=== PATIENT | male | born 1970 | race Caucasian/White ===

== ENCOUNTER → 2017-03-19 07:44 | Day surgery (SDC) | payer BC ==
[~2017-03-19 07:44] MED LIST: Buffered Lidocaine 0.9% SYRIN* 5 ML/SYR SYRINGE INTRADERM ONE; Buffered Lidocaine 0.9% SYRIN* 5 ML/SYR SYRINGE ONE; Bupivacaine 0.25% SDV* 30 ML ONE; Bupivacaine 0.5% SDV PF* 30 ML VIAL ONE; DiMENhydriNATE IV* 50 MG/ML VIAL IV PUSH PRN; HYDROcodone/ACETAMIN 5-325 MG* 1 TAB ONE; HYDROcodone/ACETAMIN 5-325 MG* 1 TAB PO PRN; HYDROmorphone INJ* 1 MG/ML CARPUJECT SYRINGE IV PRN; KETAMINE HCL* 50 MG/ML 10 ML VIAL ONE; Ketorolac INJ* 30 MG/ML 1 ML VIAL ONE; Lidocaine 1% MPF wEPI 200,000* 30 ML SDV ONE; Midazolam* 1 MG/ML 5 ML VIAL (5 MG) ONE; Ondansetron INJ* 2 MG/ML VIAL IV PRN; Propofol* 10 MG/ML 20 ML BTL IV PUSH ONE; ceFAZolin 2 GM PREMIX (*) 50 ML IVPB ONE; fentaNYL* 50 MCG/ML 2 ML VIAL (100 MCG VIAL) ONE; oxyCODONE/Acetamin 5/325 MG* TAB PO PRN
--- NOTE | 2017-03-19 11:29 | PN ---
Progress Note - Progress Note Date of Service: 03/19/17 Note: Brief Operative Note: Preop Dx: Umbilical Hernia Postop Dx: same Procedure: open repair umbilical hernia w/ mesh Anesthesia: local/MAC Surgeon: Omar Asst: AURY Harris EBL: < 50 ml Fluids: 1 liter LR Drains: none Specimen: none Findings: dictated
[2017-03-19] MEDS: fentaNYL* 50 MCG/ML 2 ML VIAL (100 MCG VIAL) IV PRN ×2 (11:49→11:58)
[2017-03-19 12:54] VITALS: BP 117/79
--- NOTE | 2017-03-20 09:03 | OP ---
CC: Jada Lawrence NP * DATE OF OPERATION: 03/19/17 - [facility] DATE OF : 70 SURGEON: Dr. Nelson. SHOE ASSOCIATE: AURY Michael. ANESTHESIOLOGIST: Dr. Faust. ANESTHESIA: Local MAC. PRE-OP DIAGNOSIS: Umbilical hernia. POST-OP DIAGNOSIS: Umbilical hernia. OPERATIVE PROCEDURE: Open repair of umbilical hernia with mesh. ESTIMATED BLOOD LOSS: Minimal. IV FLUIDS: Crystalloids. SPECIMENS: None. DRAINS: None. COMPLICATIONS: None. COUNTS: The instrument, needle, and sponge counts were correct. DESCRIPTION OF PROCEDURE: The patient was brought to the operating room and placed on the table supine. The patient's abdomen was prepped and draped in the usual sterile fashion. He received appropriate intravenous antibiotics and a time-out was performed. The local anesthetic was infiltrated as a field block surrounding the umbilicus. A curvilinear infraumbilical incision was created. Subcutaneous tissues were divided. The umbilical stalk was identified. The umbilical hernia sac was identified and this was exiting to the left of the umbilical stalk. The base of the stalk was from the anterior abdominal wall. The hernia defect measured 2.5 cm and the sac was opened and excised and the more vascular appearing portions of the sac were ligated with 2-0 absorbable ties. A medium sized Bard circular umbilical hernia mesh was selected for the repair. This was placed into the peritoneal cavity and drawn up through the defect using the central straps. Then the mesh was secured to the superior and inferior fascial leaflets with interrupted 0 Ti-Cron suture. The straps were cut and then the hernia defect was reapproximated transversely using interrupted 0 Ti-Cron. The umbilical stalk was reapproximated with 3-0 Polysorb, skin was closed in 2 layers with 3-0 Polysorb subcu and 4-0 Monocryl for the skin edges. Steri-Strips were applied. The patient tolerated the procedure well and was transferred to recovery room in stable condition. [id number]/[facility] #: [id number] MTDD
== END | disposition home or self-care (01) ==
LOC: OR 07:44
PROVIDERS: ATTEND Surgery
PROC: 0WUF0JZ Supplement Abdominal Wall with Synthetic Substitute, Open Approach (ICD-10-PCS; principal; 2017-03-19 09:15)
DX: K42.9 Umbilical hernia without obstruction or gangrene (principal); R10.813 Right lower quadrant abdominal tenderness; E66.9 Obesity, unspecified; Z68.35 Body mass index [BMI] 35.0-35.9, adult; F90.9 Attention-deficit hyperactivity disorder, unspecified type
CPT/HCPCS: C1781; J0690; J1885; J2001; J2250; J2704; J3010

== ENCOUNTER 2019-06-12 15:39 | Emergency (ER) | payer BC ==
[2019-06-12 18:53] LABS: ABS Lymphocytes 0.4 10^3/ul (1.0-4.8); ABS Monocytes 0.5 10^3/ul (0-0.8); ABS Neutrophils 11.1 10^3/ul (1.5-7.7); Eosinophil % 0.1 %; Hematocrit 48 % (42-52); Hemoglobin 16.8 g/dL (14.0-18.0); Lymphocyte % 3.4 %; Mean Corpuscular HGB Conc 35 g/dL (31-36); Mean Corpuscular Hemoglobin 31 pg (27-31); Mean Corpuscular Volume 88 fL (80-94); Mean Platelet Volume 7.5 fL (7.4-10.4); Nucleated Red Blood Cells % 0.1; Platelet Count 235 10^3/uL (150-450); Red Cell Distribution Width 13 % (10-15); White Blood Count 12.1 10^3/uL (3.5-10.8)
[2019-06-12 19:10] LABS: Albumin 4.2 g/dL (3.2-5.2); Albumin/Globulin Ratio 1.4 (1-3); BUN/Creatinine Ratio 18.1 (8-20); C Reactive Protein 19.52 mg/L (<8.01); Calcium 8.9 mg/dL (8.6-10.3); EGFR African American 103.6 (>60); EGFR Non-African American 85.7 (>60); Globulin 2.9 g/dL (2-4); Potassium 4.4 mmol/L (3.5-5.0); Total Bilirubin 0.6 mg/dL (0.2-1.0); Total Protein 7.1 g/dL (6.4-8.9)
--- NOTE | 2019-06-12 19:43 | ED ---
Abdominal Pain/Male - HPI Summary HPI Summary: This pt is a 48 Y/O M presenting to [facility] accompanied by his with a CC of abdominal pain that has been present for a couple months but worsened today at 0900. He states that he woke up at 0600 and felt normal until he ate breakfast. He states that his stomach was bloated and became nauseas and vomited after he ate breakfast. He states that he is unusually full after eating small meals and the pain is rated a 9/10 in severity and is diffuse. He states that the pain moves around the abdomen and is rarely in the same place but is mostly located in the upper abdomen. The pain is worse on palpation, after eating, and when he stands up but is alleviated while he lies down. He denies any fevers, headaches, and SOB. He states that he has a PMHx of GERD and has had a surgery for an inguinal hernia. - History of Current Complaint Chief Complaint: EDAbdPain Stated Complaint: ABD PAIN/BLOATING PER PT Time Seen by Provider: 06/12/19 19:29 Hx Obtained From: Patient Onset/Duration: Sudden Onset Timing: Constant Severity Initially: Moderate Severity Currently: Severe Pain Intensity: 9 Pain Scale Used: 0-10 Numeric Location: Diffuse - States that the pain can be anywhere, Epigastric - mostly located in the epigastric region Radiates: No Aggravating Factor(s): Food, Movement Alleviating Factor(s): Position - states that lying down alleviates Associated Signs And Symptoms: Positive: Negative - headaches, SOB, Decreased Appetite, Nausea, Vomiting, Other - bloating. Negative: Fever - Allergies/Home Medications Allergies/Adverse Reactions: Allergies Allergy/AdvReac Type Severity Reaction Status Date / Time MS Shellfish Allergy Allergy Intermediate See Comment Verified 06/12/19 15:42 Home Medications: Home Medications Dextroamphetamine/Amphetamine [Dextroamp-Amphetamin 10 mg Tab] 10 mg PO QAM [History Confirmed 06/12/19] PMH/Surg Hx/FS Hx/Imm Hx Previously Healthy: Yes Respiratory History: Reports: Hx Asthma GI History: Reports: Hx Gastroesophageal Reflux Disease Musculoskeletal History: Reports: Other Musculoskeletal History - cervical spinal fusoin Sensory History: Denies: Hx Cataracts, Hx Contacts or Glasses, Hx Hearing Aid Opthamlomology History: Denies: Hx Cataracts, Hx Contacts or Glasses Psychiatric History: Reports: Hx Anxiety - little bit, om ADD medicine - Cancer History Hx Chemotherapy: No Hx Radiation Therapy: No - Surgical History Surgical History: Yes Surgery Procedure, Year, and Place: C5-6,C6-7 Anterior Cervical Diskectomy with banked bone Fusion 08/2008. Left Endoscopic Carpal tunnel release 12/2008. Right Endoscopic Carpal Tunnel Release 01/2009 Hx Anesthesia Reactions: No Infectious Disease History: No Infectious Disease History: Denies: Traveled Outside the [place] in Last 30 Days - Family History Known Family History: Negative: Hypertension, Renal Disease - Social History Occupation: Employed Full-time Lives: With Family Alcohol Use: Occasionally Hx Substance Use: No Substance Use Type: Reports: None Hx Tobacco Use: Yes Smoking Status (MU): Former Smoker Amount Used/How Often: smoked off and on for 10 years 2pp Review of Systems Negative: Fever Negative: Shortness Of Breath Positive: Abdominal Pain, Vomiting, Nausea, Other - abdominal bloating Negative: Headache All Other Systems Reviewed And Are Negative: Yes Physical Exam - Summary Physical Exam Summary: Appearance: Well-appearing, Well-nourished, lying in bed comfortably, known to be tachycardic Skin: Warm, dry, no obvious rash Eyes: sclera anicteric, no conjunctival pallor ENT: mucous membranes moist, pharynx appears normal Neck: Supple, nontender Respiratory: Clear to auscultation, no signs of respiratory distress Cardiovascular: Normal S1, S2. No murmurs. Normal distal pulses in tibial and radial bilaterally. Abdomen: Soft, nontender, normal active bowel sounds present, upper abdominal tenderness that is inconsistent without peritoneal signs Musculoskeletal: Normal, Strength/ROM Intact Neurological: A&Ox3, awake and alert, mentation is normal, speech is fluent and appropriate Psychiatric: affect is normal, does not appear anxious or depressed Triage Information Reviewed: Yes Vital Signs On Initial Exam: Initial Vitals Temp Pulse Resp BP Pulse Ox 98.1 F 111 15 129/85 97 06/12/19 15:41 06/12/19 15:41 06/12/19 15:41 06/12/19 15:41 06/12/19 15:41 Vital Signs Reviewed: Yes Procedures - Sedation Patient Received Moderate/Deep Sedation with Procedure: No Diagnostics - Vital Signs Vital Signs Temp Pulse Resp BP Pulse Ox 06/12/19 17:47 99.1 F 126 18 96/80 97 06/12/19 15:41 98.1 F 111 15 129/85 97 - Laboratory Lab Results: Lab Results 06/12/19 06/12/19 06/12/19 Range/Units 18:41 18:41 18:41 WBC 12.1 H (3.5-10.8) 10^3/uL RBC 5.50 H (4.18-5.48) 10^6 /uL Hgb 16.8 (14.0-18.0) g/dL Hct 48 (42-52) % MCV 88 (80-94) fL MCH 31 (27-31) pg MCHC 35 (31-36) g/dL RDW 13 (10-15) % Plt Count 235 (150-450) 10^3/uL MPV 7.5 (7.4-10.4) fL Neut % (Auto) 92.2 % Lymph % (Auto) 3.4 % Leon % (Auto) 4.2 % Eos % (Auto) 0.1 % Baso % (Auto) 0.1 % Absolute Neuts (auto) 11.1 H (1.5-7.7) 10^3/ul Absolute Lymphs (auto) 0.4 L (1.0-4.8) 10^3/ul Absolute Monos (auto) 0.5 (0-0.8) 10^3/ul Absolute Eos (auto) 0.0 (0-0.6) 10^3/ul Absolute Basos (auto) 0.0 (0-0.2) 10^3/ul Absolute Nucleated RBC 0.0 10^3/ul Nucleated RBC % 0.1 Sodium 137 (135-145) mmol/L Potassium 4.4 (3.5-5.0) mmol/L Chloride 105 (101-111) mmol/L Carbon Dioxide 28 (22-32) mmol/L Anion Gap 4 (2-11) mmol/L BUN 17 (6-24) mg/dL Creatinine 0.94 (0.67-1.17) mg/dL Est GFR ( Amer) 103.6 (>60) Est GFR (Non-Af Amer) 85.7 (>60) BUN/Creatinine Ratio 18.1 (8-20) Glucose 117 H (70-100) mg/dL Lactic Acid 1.6 (0.5-2.0) mmol/L Calcium 8.9 (8.6-10.3) mg/dL Total Bilirubin 0.60 (0.2-1.0) mg/dL AST 16 (13-39) U/L ALT 27 (7-52) U/L Alkaline Phosphatase 51 (34-104) U/L C-Reactive Protein 19.52 H (<8.01) mg/L Total Protein 7.1 (6.4-8.9) g/dL Albumin 4.2 (3.2-5.2) g/dL Globulin 2.9 (2-4) g/dL Albumin/Globulin Ratio 1.4 (1-3) Lipase 14 (11.0-82.0) U/L Result Diagrams: 06/12/19 18:41 06/12/19 18:41 Lab Statement: Any lab studies that have been ordered have been reviewed, and results considered in the medical decision making process. - CT CT A/P CT Interpretation Completed By: Radiologist Summary of CT Findings: No acute pathology. No acute bowel pathology. ED physician has reveiwed this report. Abdominal Pain Male Course/Dx - Course Course Of Treatment: This pt is a 48 Y/O M presenting to [facility] accompanied by his with a CC of abdominal pain that has been present for a couple months but worsened today at 0900. He states that he woke up at 0600 and felt normal until he ate breakfast. He states that his stomach was bloated and became nauseas and vomited after he ate breakfast. States nausea and vomiting, denies fevers, headaches, and SOB. His PE found that he is known to be tachycardic and he has upper abdominal tenderness that is inconsistent without peritoneal signs. He has an elevated WBC and C-reactive protein count. His CT A/P fpund that he has No acute pathology. No acute bowel pathology. Etiology of his pain is unclear, but reasonable to start empiric PPI, explained he will need to see his PCP or a motor boss in the near future as he may need an EGD. Cautioned on return precaution in the interim. He will be discharged home with a Dx of acute abdominal pain. - Diagnoses Provider Diagnoses: Acute abdominal pain Discharge ED - Sign-Out/Discharge Documenting (check all that apply): Patient Departure - discharge - Discharge Plan Condition: Good Disposition: HOME Prescriptions: Omeprazole CAP (NF) [Prilosec CAP* 20 MG] 20 mg PO DAILY #30 cap. Patient Education Materials: Peptic Ulcer (ED), Gastritis (ED), Diet for Stomach Ulcers and Gastritis (ED), Acute Abdominal Pain (ED) Referrals: Dale Ramos MD [Primary Care Provider] - Nichole James MD [Medical Doctor] - As Soon As Possible Additional Instructions: It may take a few days for the medication to work, but I don't want you getting any worse. If the pain significantly worsens or you develop other symptoms like vomiting or fever we should see you back. - Billing Disposition and Condition Condition: GOOD Disposition: Home - Attestation Statements Document Initiated by Elena: Yes Documenting Scribe: Ariel Herrera Provider For Whom Elena is Documenting (Include Credential): Bruno Salazar MD Scribe Attestation: Ariel Garcia, scribed for Bruno Salazar MD on 06/13/19 at 1838. Scribe Documentation Reviewed: Yes Provider Attestation: The documentation as recorded by the Ariel meeks accurately reflects the service I personally performed and the decisions made by me, Bruno Salazar MD Status of Scribe Document: Viewed
[2019-06-12] MEDS ORDERED: Iohexol 300* (CONTRAST) 10 ML SDV IV ONE (21:18)
[2019-06-12 21:42] LABS: Urine Appearance Clear; Urine Bilirubin Negative (Negative); Urine Blood 1+ (Negative); Urine Color Yellow; Urine Glucose Negative (Negative); Urine Ketones Negative (Negative); Urine Nitrite Negative (Negative); Urine Protein Negative (Negative); Urine Specific Gravity 1.021 (1.010-1.030); Urine Urobilinogen Negative (Negative)
[2019-06-12 21:57] LABS: Urine Bacteria Absent (Absent); Urine Red Blood Cell 2+(6-10/hpf) (Absent); Urine Squamous Epithelial Cell Present (Absent); Urine White Blood Cell Absent (Absent)
[2019-06-12] MEDS ORDERED: Pantoprazole TAB * 40 MG TAB PO ONE (22:50)
[2019-06-12 23:02] VITALS: BP 149/78
== END 2019-06-12 23:22 | disposition home or self-care (01) ==
LOC: ED 15:39
DX: R10.9 Unspecified abdominal pain (principal); K21.9 Gastro-esophageal reflux disease without esophagitis; F41.9 Anxiety disorder, unspecified; Z87.891 Personal history of nicotine dependence; Z79.899 Other long term (current) drug therapy
CPT/HCPCS: 36415; 74177; 80053; 81003; 81015; 83605; 83690; 85025; 86140; 99283; A9270-GY; Q9967

== ENCOUNTER 2020-11-04 23:07 | Inpatient (IN) ==
[2020-11-05 00:41] LABS: ABS Lymphocytes 0.9 10^3/ul (1.0-4.8); ABS Monocytes 0.5 10^3/ul (0-0.8); ABS Neutrophils 2.4 10^3/ul (1.5-7.7); Eosinophil % 0.3 %; Hematocrit 45 % (42-52); Hemoglobin 15.4 g/dL (14.0-18.0); Lymphocyte % 23.3 %; Mean Corpuscular HGB Conc 35 g/dL (31-36); Mean Corpuscular Hemoglobin 31 pg (27-31); Mean Corpuscular Volume 88 fL (80-94); Platelet Count 166 10^3/uL (150-450); Red Blood Count 5.05 10^6 /uL (4.18-5.48); Red Cell Distribution Width 14 % (10-15); White Blood Count 3.7 10^3/uL (3.5-10.8)
[2020-11-05 00:51] LABS: Albumin 3.8 g/dL (3.2-5.2); Albumin/Globulin Ratio 1.4 (1-3); Calcium 8.8 mg/dL (8.6-10.3); EGFR African American 90.5 (>60); EGFR Non-African American 74.8 (>60); Globulin 2.7 g/dL (2-4); Total Bilirubin 0.5 mg/dL (0.2-1.0); Total Protein 6.5 g/dL (6.4-8.9)
[2020-11-05 01:14] LABS: Potassium 3.5 mmol/L (3.5-5.0)
[2020-11-05] MEDS ORDERED: Al Hydrox/Mg Hydrox/Simet LIQ 30 ML UDC PO PRN (04:20)
[2020-11-05 04:56] LABS: HDL Cholesterol 27.3 mg/dL
[2020-11-05] MEDS: Enoxaparin 40 MG/0.4 ML SYR SUBCUT SCH (07:26)
[2020-11-05] MEDS: Amphetamine MIXED SALT 10mgTAB PO SCH (07:26)
[2020-11-05 07:48] LABS: C Reactive Protein 40.79 mg/L (<8.01)
[2020-11-05] MEDS ORDERED: Iohexol 350 (CONTRAST) 500 ML MDV IV ONE (11:33)
[2020-11-05] MEDS ORDERED: Senna TAB 8.6 mg TAB PO PRN (19:23)
[2020-11-05] MEDS ORDERED: Magnesium Hydroxide LIQ 30 ML UDC PO PRN (19:23)
[2020-11-05] MEDS ORDERED: NS 0.9% 1000 ml BAG 1,000 ML IV ONE (23:33)
[2020-11-06 00:17] LABS: ABS Lymphocytes 0.8 10^3/ul (1.0-4.8); ABS Monocytes 0.4 10^3/ul (0-0.8); ABS Neutrophils 2.6 10^3/ul (1.5-7.7); Eosinophil % 0.1 %; Hematocrit 46 % (42-52); Hemoglobin 15.6 g/dL (14.0-18.0); Lymphocyte % 20.6 %; Mean Corpuscular HGB Conc 34 g/dL (31-36); Mean Corpuscular Hemoglobin 30 pg (27-31); Mean Corpuscular Volume 88 fL (80-94); Mean Platelet Volume 8.6 fL (7.4-10.4); Platelet Count 120 10^3/uL (150-450); Red Blood Count 5.16 10^6 /uL (4.18-5.48); Red Cell Distribution Width 14 % (10-15); White Blood Count 3.8 10^3/uL (3.5-10.8)
[2020-11-06 00:33] LABS: Albumin 3.7 g/dL (3.2-5.2); Albumin/Globulin Ratio 1.4 (1-3); C Reactive Protein 51.57 mg/L (<8.01); EGFR African American 100.3 (>60); EGFR Non-African American 82.9 (>60); Globulin 2.7 g/dL (2-4); Potassium 3.4 mmol/L (3.5-5.0); Total Bilirubin 0.5 mg/dL (0.2-1.0); Total Protein 6.4 g/dL (6.4-8.9)
[2020-11-06] MEDS: NS 0.9% 1000 ml BAG 1,000 ML IV SCH ×2 (00:39→11:47)
[2020-11-06 00:55] LABS: Influenza A Molecular Negative (Negative); Influenza B Molecular Negative (Negative)
[2020-11-06] MEDS ORDERED: cefTRIAXone 1 gm/50 mL NS BAG 1 GM/50 ML BAG IVPB ONE (01:10)
[2020-11-06 02:05] LABS: Magnesium 1.9 mg/dL (1.9-2.7)
[2020-11-06 07:17] LABS: Urine Appearance Clear; Urine Bilirubin Negative (Negative); Urine Blood 1+ (Negative); Urine Color Yellow; Urine Glucose Negative (Negative); Urine Ketones 1+ (Negative); Urine Nitrite Negative (Negative); Urine Protein 1+(30 mg/dL) (Negative); Urine Specific Gravity 1.025 (1.002-1.030); Urine Urobilinogen Negative (Negative)
[2020-11-06 07:19] LABS: Urine Bacteria Absent (Absent); Urine Red Blood Cell 2+(6-10/hpf) (Absent); Urine White Blood Cell Trace(0-5/hpf) (Absent)
[2020-11-06] MEDS: Enoxaparin 40 MG/0.4 ML SYR SUBCUT SCH (07:49)
[2020-11-06] MEDS: Amphetamine MIXED SALT 10mgTAB PO SCH (07:49)
[2020-11-06] MEDS ORDERED: Potassium Chlor 20 meq TAB.ER PO ONE (09:00)
[2020-11-06] MEDS ORDERED: Albuterol HFA INHALER 8 gm MDI INH PRN (10:34)
[2020-11-06] MEDS: cefTRIAXone 1 gm/50 mL NS BAG 1 GM/50 ML BAG IVPB SCH (19:25)
[2020-11-07 06:57] LABS: Hematocrit 46 % (42-52); Hemoglobin 15.8 g/dL (14.0-18.0); Mean Corpuscular HGB Conc 34 g/dL (31-36); Mean Corpuscular Hemoglobin 30 pg (27-31); Mean Corpuscular Volume 88 fL (80-94); Mean Platelet Volume 8.6 fL (7.4-10.4); Platelet Count 115 10^3/uL (150-450); Red Blood Count 5.21 10^6 /uL (4.18-5.48); Red Cell Distribution Width 14 % (10-15); White Blood Count 3.9 10^3/uL (3.5-10.8)
[2020-11-07 07:18] LABS: CRP High Sensitivity 35.17 mg/L (<2.00); Calcium 8.3 mg/dL (8.6-10.3); EGFR African American 125.6 (>60); EGFR Non-African American 103.8 (>60)
[2020-11-07] MEDS: Amphetamine MIXED SALT 10mgTAB PO SCH (07:49)
[2020-11-07 08:36] LABS: ABS Lymphocytes 1.3 10^3/ul (1.0-4.8); ABS Monocytes 0.7 10^3/ul (0-0.8); ABS Neutrophils 1.8 10^3/ul (1.5-7.7); Eosinophil % 0.9 %; Lymphocyte % 34.3 %; Nucleated Red Blood Cells % 0.3
[2020-11-07] MEDS: Enoxaparin 40 MG/0.4 ML SYR SUBCUT SCH (08:44)
[2020-11-07 08:49] LABS: Erythrocyte Sed Rate 5 mm/Hr (0-19)
[2020-11-07] MEDS ORDERED: Perflutren Lipid Microsphere 3 ML VIAL ONE (09:50)
[2020-11-07 11:25] LABS: C Reactive Protein 37.01 mg/L (<8.01)
[2020-11-07] MEDS ORDERED: Nicotine PATCH 7 MG/24 HR PATCH TRANSDERM SCH (12:00)
[2020-11-07] MEDS: cefTRIAXone 1 gm/50 mL NS BAG 1 GM/50 ML BAG IVPB SCH (20:12)
[2020-11-08 09:11] VITALS: BP 110/72
[2020-11-08] MEDS: Amphetamine MIXED SALT 10mgTAB PO SCH (10:32)
[2020-11-08] MEDS: Enoxaparin 40 MG/0.4 ML SYR SUBCUT SCH (10:32)
[2020-11-09 01:06] LABS: B garinii/B afzelii PCR Negative (Negative); B mayonii PCR Negative (Negative)
[2020-11-09 01:34] LABS: Anaplasma phagocytophilum Positive (Negative); B. miyamotoi PCR, B Negative (Negative); Babesia divergens/MO-1 Negative (Negative); Babesia ducani Negative (Negative); Ehrlichia chaffeensis Negative (Negative); Ehrlichia ewingii/canis Negative (Negative); Ehrlichia muris eauclairensis Negative (Negative)
== END 2020-11-08 12:30 | disposition home or self-care (01) | DRG 203 ==
LOC: ED 23:07 → MEDTELE 23:07 → MED 11-05 14:28
PROVIDERS: ADMIT Internal Medicine Interventional Cardiology; ATTEND Internal Medicine

== ENCOUNTER 2021-06-06 01:26 | Inpatient (IN) ==
[2021-06-06] MEDS ORDERED: Dexamethasone IV 4 MG/ML VIAL 1 ml VIAL IV SLOW PU ONE (02:19)
[2021-06-06 02:44] LABS: Venous Bicarbonate HCO3 27.1 mmol/L (24-28)
[2021-06-06 02:45] LABS: ABS Lymphocytes 0.7 10^3/ul (1.0-4.8); ABS Monocytes 0.4 10^3/ul (0-0.8); ABS Neutrophils 7.5 10^3/ul (1.5-7.7); Hematocrit 46 % (42-52); Hemoglobin 16.1 g/dL (14.0-18.0); Lymphocyte % 8.6 %; Mean Corpuscular HGB Conc 35 g/dL (31-36); Mean Corpuscular Hemoglobin 30 pg (27-31); Mean Corpuscular Volume 86 fL (80-94); Mean Platelet Volume 7.4 fL (7.4-10.4); Nucleated Red Blood Cells % 0.1; Platelet Count 199 10^3/uL (150-450); Red Cell Distribution Width 13 % (10-15); White Blood Count 8.7 10^3/uL (3.5-10.8)
[2021-06-06 03:01] LABS: Albumin 3.6 g/dL (3.2-5.2); Albumin/Globulin Ratio 0.9 (1-3); C Reactive Protein 80.85 mg/L (<8.01); Calcium 8.4 mg/dL (8.6-10.3); Globulin 3.8 g/dL (2-4); Potassium 3.8 mmol/L (3.5-5.0); Total Bilirubin 0.7 mg/dL (0.2-1.0); Total Protein 7.4 g/dL (6.4-8.9); eGFR CKD-EPI 90.6 (>60)
[2021-06-06 03:03] LABS: Troponin I 0.01 ng/mL (<0.03)
[2021-06-06] MEDS ORDERED: NS 0.9% 1000 ml BAG 1,000 ML IV ONE (03:18)
[2021-06-06 03:20] LABS: Activated Partial Thrombo Time 32.8 seconds (26.0-38.0); INR 1.3 (0.86-1.15)
[2021-06-06] MEDS ORDERED: Albuterol HFA INHALER 8 gm MDI INH PRN (04:32)
[2021-06-06] MEDS ORDERED: NS 0.9% 1000 ml BAG 1,000 ML IV SCH (04:45)
[2021-06-06] MEDS: Enoxaparin 40 MG/0.4 ML SYR SUBCUT SCH (05:08)
[2021-06-06 05:26] LABS: ABS Lymphocytes 0.5 10^3/ul (1.0-4.8); ABS Monocytes 0.3 10^3/ul (0-0.8); ABS Neutrophils 8.4 10^3/ul (1.5-7.7); Hematocrit 43 % (42-52); Hemoglobin 14.9 g/dL (14.0-18.0); Lymphocyte % 5.1 %; Mean Corpuscular HGB Conc 35 g/dL (31-36); Mean Corpuscular Hemoglobin 30 pg (27-31); Mean Corpuscular Volume 86 fL (80-94); Mean Platelet Volume 7.5 fL (7.4-10.4); Platelet Count 195 10^3/uL (150-450); Red Blood Count 4.94 10^6 /uL (4.18-5.48); Red Cell Distribution Width 13 % (10-15); White Blood Count 9.2 10^3/uL (3.5-10.8)
[2021-06-06 13:42] LABS: Ferritin 1220.2 ng/mL (24-336)
[2021-06-06] MEDS ORDERED: Remdesivir 100 mg Vial 200 MG in NS 0.9% 250 ml 210 ML IV ONE (14:58)
[2021-06-06 15:47] LABS: INR 1.29 (0.86-1.15)
[2021-06-06 16:09] LABS: Albumin 3.6 g/dL (3.2-5.2); Albumin/Globulin Ratio 1.1 (1-3); Calcium 8.6 mg/dL (8.6-10.3); Globulin 3.4 g/dL (2-4); Potassium 3.8 mmol/L (3.5-5.0); Total Bilirubin 0.5 mg/dL (0.2-1.0); eGFR CKD-EPI 109.1 (>60)
[2021-06-06] MEDS: Albuterol HFA INHALER 8 gm MDI INH PRN (17:32)
[2021-06-07 07:21] LABS: ABS Lymphocytes 0.9 10^3/ul (1.0-4.8); ABS Monocytes 0.6 10^3/ul (0-0.8); ABS Neutrophils 10.7 10^3/ul (1.5-7.7); Hematocrit 44 % (42-52); Hemoglobin 15.1 g/dL (14.0-18.0); Lymphocyte % 7.6 %; Mean Corpuscular HGB Conc 34 g/dL (31-36); Mean Corpuscular Hemoglobin 29 pg (27-31); Mean Corpuscular Volume 86 fL (80-94); Platelet Count 263 10^3/uL (150-450); Red Blood Count 5.12 10^6 /uL (4.18-5.48); Red Cell Distribution Width 13 % (10-15); White Blood Count 12.3 10^3/uL (3.5-10.8)
[2021-06-07 07:30] LABS: INR 1.23 (0.86-1.15)
[2021-06-07 07:32] LABS: Albumin 3.2 g/dL (3.2-5.2); Albumin/Globulin Ratio 0.9 (1-3); Calcium 8.3 mg/dL (8.6-10.3); Globulin 3.4 g/dL (2-4); Total Bilirubin 0.5 mg/dL (0.2-1.0); Total Protein 6.6 g/dL (6.4-8.9); eGFR CKD-EPI 112.7 (>60)
[2021-06-07] MEDS: Enoxaparin 40 MG/0.4 ML SYR SUBCUT SCH (09:17)
[2021-06-07] MEDS: Remdesivir 100 mg Vial 100 MG in NS 0.9% 250 ml 230 ML IV SCH (21:14)
[2021-06-07] MEDS: Albuterol HFA INHALER 8 gm MDI INH PRN (23:58)
[2021-06-08] MEDS ORDERED: Albuterol HFA INHALER 8 gm MDI INH PRN (00:12)
[2021-06-08 05:38] LABS: Albumin 3.2 g/dL (3.2-5.2); Calcium 8.5 mg/dL (8.6-10.3); Globulin 3.3 g/dL (2-4); Potassium 3.8 mmol/L (3.5-5.0); Total Bilirubin 0.5 mg/dL (0.2-1.0); Total Protein 6.5 g/dL (6.4-8.9); eGFR CKD-EPI 107.8 (>60)
[2021-06-08 05:45] LABS: INR 1.22 (0.86-1.15)
[2021-06-08] MEDS: Enoxaparin 40 MG/0.4 ML SYR SUBCUT SCH (07:46)
[2021-06-08] MEDS ORDERED: Polyethylene Glycol 3350 17 GM PACKET PO PRN (08:22)
[2021-06-08] MEDS ORDERED: Senna TAB 8.6 mg TAB PO PRN (08:22)
[2021-06-08] MEDS: methylPREDNISolone SOD 40 mg/ml 1 ml VIAL IV SCH ×2 (11:25→19:38)
[2021-06-08] MEDS: Remdesivir 100 mg Vial 100 MG in NS 0.9% 250 ml 230 ML IV SCH (19:38)
[2021-06-09] MEDS: methylPREDNISolone SOD 40 mg/ml 1 ml VIAL IV SCH ×3 (03:08→19:41)
[2021-06-09 07:38] LABS: ABS Lymphocytes 0.7 10^3/ul (1.0-4.8); ABS Monocytes 0.5 10^3/ul (0-0.8); ABS Neutrophils 12.1 10^3/ul (1.5-7.7); Hematocrit 44 % (42-52); Hemoglobin 14.9 g/dL (14.0-18.0); Lymphocyte % 5.2 %; Mean Corpuscular HGB Conc 34 g/dL (31-36); Mean Corpuscular Hemoglobin 30 pg (27-31); Mean Corpuscular Volume 86 fL (80-94); Mean Platelet Volume 7.5 fL (7.4-10.4); Platelet Count 378 10^3/uL (150-450); Red Blood Count 5.04 10^6 /uL (4.18-5.48); Red Cell Distribution Width 13 % (10-15); White Blood Count 13.4 10^3/uL (3.5-10.8)
[2021-06-09 07:51] LABS: INR 1.28 (0.86-1.15)
[2021-06-09 07:56] LABS: Albumin 3.2 g/dL (3.2-5.2); Calcium 8.4 mg/dL (8.6-10.3); Globulin 3.2 g/dL (2-4); Potassium 3.9 mmol/L (3.5-5.0); Total Bilirubin 0.6 mg/dL (0.2-1.0); Total Protein 6.4 g/dL (6.4-8.9); eGFR CKD-EPI 111.3 (>60)
[2021-06-09] MEDS: Enoxaparin 40 MG/0.4 ML SYR SUBCUT SCH (08:17)
[2021-06-09] MEDS: Remdesivir 100 mg Vial 100 MG in NS 0.9% 250 ml 230 ML IV SCH (19:41)
[2021-06-10] MEDS: methylPREDNISolone SOD 40 mg/ml 1 ml VIAL IV SCH ×3 (02:36→21:06)
[2021-06-10 07:30] LABS: INR 1.25 (0.86-1.15)
[2021-06-10 07:32] LABS: Albumin 3.1 g/dL (3.2-5.2); Albumin/Globulin Ratio 0.9 (1-3); Calcium 8.4 mg/dL (8.6-10.3); Globulin 3.4 g/dL (2-4); Potassium 4.2 mmol/L (3.5-5.0); Total Bilirubin 0.6 mg/dL (0.2-1.0); Total Protein 6.5 g/dL (6.4-8.9); eGFR CKD-EPI 111.8 (>60)
[2021-06-10] MEDS: Enoxaparin 40 MG/0.4 ML SYR SUBCUT SCH (08:49)
[2021-06-10] MEDS: Al Hydrox/Mg Hydrox/Simet LIQ 30 ML UDC PO PRN (14:00)
[2021-06-10] MEDS: Remdesivir 100 mg Vial 100 MG in NS 0.9% 250 ml 230 ML IV SCH (21:07)
[2021-06-11] MEDS: methylPREDNISolone SOD 40 mg/ml 1 ml VIAL IV SCH ×3 (04:07→19:56)
[2021-06-11] MEDS: Saline NASAL SPRAY 0.65% BTL BOTH NARES PRN ×2 (04:10→09:58)
[2021-06-11] MEDS: Enoxaparin 40 MG/0.4 ML SYR SUBCUT SCH (09:57)
[2021-06-11 12:20] LABS: Albumin 3.2 g/dL (3.2-5.2); Calcium 8.2 mg/dL (8.6-10.3); Globulin 3.3 g/dL (2-4); Potassium 3.9 mmol/L (3.5-5.0); Total Bilirubin 0.5 mg/dL (0.2-1.0); Total Protein 6.5 g/dL (6.4-8.9); eGFR CKD-EPI 109.5 (>60)
[2021-06-11 12:27] LABS: INR 1.24 (0.86-1.15)
[2021-06-11] MEDS: Magnesium Hydroxide LIQ 30 ML UDC PO PRN (14:36)
[2021-06-12] MEDS: methylPREDNISolone SOD 40 mg/ml 1 ml VIAL IV SCH ×2 (04:36→11:06)
[2021-06-12] MEDS: Enoxaparin 40 MG/0.4 ML SYR SUBCUT SCH (11:06)
[2021-06-13 07:54] LABS: Albumin 3.2 g/dL (3.2-5.2); C Reactive Protein 1.49 mg/L (<8.01); Calcium 8.4 mg/dL (8.6-10.3); Globulin 3.2 g/dL (2-4); Potassium 4.1 mmol/L (3.5-5.0); Total Bilirubin 0.7 mg/dL (0.2-1.0); Total Protein 6.4 g/dL (6.4-8.9); eGFR CKD-EPI 101.3 (>60)
[2021-06-13] MEDS: Enoxaparin 40 MG/0.4 ML SYR SUBCUT SCH (09:44)
[2021-06-13] MEDS: Al Hydrox/Mg Hydrox/Simet LIQ 30 ML UDC PO PRN (09:46)
[2021-06-13] MEDS: Magnesium Hydroxide LIQ 30 ML UDC PO PRN (21:19)
[2021-06-14] MEDS: Enoxaparin 40 MG/0.4 ML SYR SUBCUT SCH (10:21)
[2021-06-15] MEDS: Enoxaparin 40 MG/0.4 ML SYR SUBCUT SCH (10:11)
[2021-06-16] MEDS: Enoxaparin 40 MG/0.4 ML SYR SUBCUT SCH (08:05)
[2021-06-16 09:02] VITALS: BP 108/76
== END 2021-06-16 10:45 | disposition home or self-care (01) | DRG 720 ==
LOC: EDHOLD 01:26 → ED 01:26 → EDHOLD 10:04 → MED 11:20 → SUATTDRO 06-07 10:00
PROVIDERS: ADMIT Student in an Organized Health Care Education/Training Program; ATTEND Hospitalist